=== PATIENT | male | born 1965 | race Caucasian/White ===

== ENCOUNTER 2019-02-14 11:02 | Emergency (ER) | payer MEDICARE, MEDICAID ==
--- NOTE | 2019-02-14 11:21 | ED ---
GI/ HPI - HPI Summary HPI Summary: Patient is a 53-year-old male who presents emergency department for painless hematuria times one day. Past medical history of bipolar disorder. Patient is not anticoagulated. Patient denies associated chest pain, shortness of breath, flank pain, fever, abdominal pain or dysuria. Patient states he is not passing any clots. Patient is a daily smoker. Patient denies similar symptoms in the past. Symptoms are moderate in severity. No current modifying factors. - History of Current Complaint Chief Complaint: EDUrogenitalProblems Time Seen by Provider: 02/14/19 11:19 Stated Complaint: BLOOD IN URINE Hx Obtained From: Patient Pain Intensity: 0 - Allergy/Home Medications Allergies/Adverse Reactions: Allergies Allergy/AdvReac Type Severity Reaction Status Date / Time No Known Allergies Allergy Verified 02/14/19 11:08 Home Medications: Home Medications Atorvastatin* [Lipitor*] 20 mg PO DAILY 02/14/19 [History Confirmed 02/14/19] Divalproex ER TAB(*) [Depakote ER TAB(*)] 1,000 mg PO QAM 02/14/19 [History Confirmed 02/14/19] Divalproex ER TAB(*) [Depakote ER TAB(*)] 1,500 mg PO QPM 02/14/19 [History Confirmed 02/14/19] Escitalopram * [Lexapro 10 mg (NF)] 10 mg PO DAILY 02/14/19 [History Confirmed 02/14/19] Icosapent Ethyl [Vascepa] 1 gm PO BID 02/14/19 [History Confirmed 02/14/19] OLANzapine TAB* [Zyprexa 10 MG TAB*] 10 mg PO DAILY MDD 2 tabs 02/14/19 [ History Confirmed 02/14/19] PMH/Surg Hx/FS Hx/Imm Hx Previously Healthy: Yes Infectious Disease History: No Infectious Disease History: Denies: Traveled Outside the [place] in Last 30 Days - Family History Known Family History: Positive: Non-Contributory - Social History Occupation: Unemployed Lives: With Family Review of Systems Constitutional: Negative Negative: Fever Cardiovascular: Negative Respiratory: Negative Gastrointestinal: Negative Negative: Abdominal Pain, Vomiting, Nausea Positive: hematuria. Negative: dysuria, flank pain Skin: Negative Negative: Rash Neurological: Negative All Other Systems Reviewed And Are Negative: Yes Physical Exam Triage Information Reviewed: Yes Vital Signs On Initial Exam: Initial Vitals Temp Pulse Resp BP Pulse Ox 98.3 F 106 16 171/92 96 02/14/19 11:04 02/14/19 11:04 02/14/19 11:04 02/14/19 11:04 02/14/19 11:04 Completion Of Physical Exam Limited Due To: Dementia Appearance: Positive: Well-Appearing - Patient sitting up in bed in no acute distress. Unkept and malodorous. Skin: Positive: Warm, Dry Head/Face: Positive: Normal Head/Face Inspection Eyes: Positive: Normal, EOMI Neck: Positive: Supple Respiratory/Lung Sounds: Positive: Clear to Auscultation, Breath Sounds Present Cardiovascular: Positive: Normal, RRR Abdomen Description: Positive: Nontender, Soft. Negative: CVA Tenderness (R), CVA Tenderness (L) Neurological: Positive: Normal, CN Intact II-III Psychiatric: Positive: Affect/Mood Appropriate Procedures - Sedation Patient Received Moderate/Deep Sedation with Procedure: No Diagnostics - Vital Signs Vital Signs Temp Pulse Resp BP Pulse Ox 02/14/19 11:04 98.3 F 106 16 171/92 96 - Laboratory Result Diagrams: 02/14/19 11:50 02/14/19 11:55 Lab Statement: Any lab studies that have been ordered have been reviewed, and results considered in the medical decision making process. GIGU Course/Dx - Course Course Of Treatment: Patient with painless hematuria. No flank pain. Is afebrile with stable vital signs. Patient provided urine specimen in ER and looks of zane blood without clots. Urinalysis shows large RBCs without signs of infection. Blood work is unremarkable. CT scan ordered to rule out obstructive obstructive uropathy, evaluate for mass. 1300: Patient notes that he just urinated in the ER again and his urine was clear without blood. Patient states he would prefer to get the CAT scan as an outpatient basis. Advised patient the importance of close follow-up with PCP and neurology for further evaluation such as CT scan and cystoscopy for further evaluation of hematuria. Patient understands and agrees with plan. He will return to the ER symptoms change or worsen. - Diagnoses Differential Diagnoses - Male: Cancer, Neoplasm, Ureteral Calculi, Urinary Tract Infection Provider Diagnoses: Painless hematuria Discharge ED - Sign-Out/Discharge Documenting (check all that apply): Patient Departure - Discharge Plan Condition: Improved Disposition: HOME Patient Education Materials: Hematuria (ED) Referrals: Melissa Rose MD [Primary Care Provider] - Bernard Justin MD [Medical Doctor] - Additional Instructions: Please schedule a follow up appointment with your PCP as soon as possible You will need a referral to urology for CT scan and likely cystoscopy for further evaluation of blood in urine Return to ER if symptoms change or worsen - Billing Disposition and Condition Condition: IMPROVED Disposition: Home - Attestation Statements Provider Attestation: I have seen the patient with the [facility] and agree with the plan and documentation below except as noted: 53-year-old male with a history smoking presents with painless hematuria. Recommended CT scan of the abdomen, patient does not want to , will follow up outpatient. Sheeba Mohan MD
[2019-02-14 12:11] LABS: ABS Basophils 0.1 10^3/ul (0-0.2); ABS Eosinophils 0.1 10^3/ul (0-0.6); ABS Lymphocytes 2.7 10^3/ul (1.0-4.8); ABS Monocytes 0.7 10^3/ul (0-0.8); ABS Neutrophils 5.1 10^3/ul (1.5-7.7); Hematocrit 46 % (42-52); Hemoglobin 15.3 g/dL (14.0-18.0); Lymphocyte % 31.1 %; Mean Corpuscular HGB Conc 34 g/dL (31-36); Mean Corpuscular Hemoglobin 30 pg (27-31); Mean Corpuscular Volume 91 fL (80-94); Mean Platelet Volume 7.8 fL (7.4-10.4); Nucleated Red Blood Cells % 0.2; Platelet Count 279 10^3/uL (150-450); Red Blood Count 5.04 10^6 /uL (4.18-5.48); Red Cell Distribution Width 15 % (10-15); White Blood Count 8.8 10^3/uL (3.5-10.8)
[2019-02-14 12:19] LABS: Urine Appearance Cloudy; Urine Bacteria Absent (Absent); Urine Bilirubin Negative (Negative); Urine Blood 3+ (Negative); Urine Glucose Negative (Negative); Urine Ketones Trace (Negative); Urine Nitrite Negative (Negative); Urine Protein 2+(100 mg/dL) (Negative); Urine Red Blood Cell 3+(>10/hpf) (Absent); Urine Specific Gravity 1.024 (1.010-1.030); Urine Urobilinogen Negative (Negative); Urine White Blood Cell Absent (Absent)
[2019-02-14 12:20] LABS: Urine Color Red
[2019-02-14 12:31] LABS: Activated Partial Thrombo Time 31.1 seconds (26.0-38.0); INR 0.97 (0.82-1.09)
[2019-02-14 12:37] LABS: Albumin 4.1 g/dL (3.2-5.2); Albumin/Globulin Ratio 1.6 (1-3); BUN/Creatinine Ratio 20.5 (8-20); Calcium 9.4 mg/dL (8.6-10.3); EGFR Non-African American 103.3 (>60); Globulin 2.5 g/dL (2-4); Potassium 3.8 mmol/L (3.5-5.0); Total Bilirubin 0.4 mg/dL (0.2-1.0); Total Protein 6.6 g/dL (6.4-8.9)
[2019-02-14 13:31] VITALS: BP 167/110
== END 2019-02-14 13:32 | disposition home or self-care (01) ==
LOC: ED 11:02
DX: R31.9 Hematuria, unspecified (principal); Z79.899 Other long term (current) drug therapy
CPT/HCPCS: 36415; 80053; 81003; 81015; 85025; 85610; 85730; 87086; 99282

== ENCOUNTER 2023-02-28 07:41 | Inpatient (IN) ==
[2023-02-28 09:21] LABS: Hematocrit 49.5 % (38-53); Hemoglobin 16.5 g/dL (13.2-16.3); Mean Corpuscular Hemoglobin 30.1 pg (27-33); Mean Corpuscular Hgb Conc 33.4 g/dL (31-36); Mean Corpuscular Volume 90.1 fL (80-97); Mean Platelet Volume 8.9 fL (7.5-11.2); Platelet Count 237 10^3/uL (150-450); Red Cell Distribution Width 15.5 % (12-17); White Blood Count 18.3 10^3/uL (3.6-10.2)
[2023-02-28 09:38] LABS: Albumin 3.9 g/dL (3.2-5.2); Albumin/Globulin Ratio 1.3 (1-3); C Reactive Protein 82.1 mg/L (<8.01); Calcium 9.8 mg/dL (8.6-10.3); Creatinine, Serum 1.78 mg/dL (0.67-1.17); Globulin 2.9 g/dL (2-4); Potassium 4.5 mmol/L (3.5-5.0); Total Bilirubin 0.5 mg/dL (0.2-1.0); Total Protein 6.8 g/dL (6.4-8.9); eGFR CKD-EPI 43.4 (>60)
[2023-02-28 09:46] LABS: Urine Appearance Turbid; Urine Bilirubin Negative (Negative); Urine Blood 3+ (Negative); Urine Color Amber; Urine Glucose Negative (Negative); Urine Ketones Negative (Negative); Urine Nitrite Negative (Negative); Urine Protein 2+(100 mg/dL) (Negative); Urine Specific Gravity 1.014 (1.002-1.030); Urine Urobilinogen Negative (Negative)
[2023-02-28] MEDS ORDERED: Lactated Ringers 1000 ml BAG 1,000 ML IV ONE (09:49)
[2023-02-28] MEDS ORDERED: Iodixanol (CONTRAST) 320 MG/ML 100 ML SDV IV ONE (09:58)
[2023-02-28 10:23] LABS: Urine Bacteria Absent (Absent); Urine Red Blood Cell 3+(>10/hpf) (Absent); Urine White Blood Cell 3+(>20/hpf) (Absent)
[2023-02-28 10:39] LABS: ABS Basophils 0.1 10^3/uL (0.0-0.1); ABS Lymphocytes 1.6 10^3/uL (1.0-4.8); ABS Monocytes 2.1 10^3/uL (0.0-1.1); ABS Neutrophils 14.5 10^3/uL (1.5-7.6); Eosinophil % 0.1 %; Lymphocyte % 8.6 %
[2023-02-28] MEDS ORDERED: cefTRIAXone 1 gm/50 mL D5W 1 GM/50 ML BAG IV ONE (11:19)
[2023-02-28 12:43] LABS: Erythrocyte Sed Rate 4 mm/Hr (0-19)
[2023-02-28] MEDS ORDERED: Piperacillin/Tazobac 3.375 BAG 3.375 GM/100 ML BAG IV ONE (13:24)
[2023-02-28 13:58] LABS: PSA Screen Ultra Sensitive 22.645 ng/mL (0-4.000)
[2023-02-28] MEDS ORDERED: Nicotine GUM 4MG FRUIT FLAVOR PO PRN (13:59)
[2023-02-28] MEDS ORDERED: Lactated Ringers 1000 ml BAG 1,000 ML IV SCH (14:00)
[2023-02-28] MEDS ORDERED: Zosyn per Pharmacy NOTE FOLLOW UP SCH (14:00)
[2023-02-28] MEDS: NS 0.9% 1000 ml BAG 1,000 ML IV SCH (15:42)
[2023-02-28] MEDS: Enoxaparin 40 MG/0.4 ML SYR SUBCUT SCH (16:19)
[2023-02-28] MEDS: Nicotine PATCH 21 MG/24 HR PATCH TRANSDERM SCH (16:19)
[2023-02-28] MEDS: ZOSYN 3.375 GM Q8H per EXTENDED INFUSION IV SCH (21:05)
[2023-03-01] MEDS: NS 0.9% 1000 ml BAG 1,000 ML IV SCH (00:39)
[2023-03-01] MEDS: ZOSYN 3.375 GM Q8H per EXTENDED INFUSION IV SCH ×3 (04:45→20:35)
[2023-03-01 09:02] LABS: PCO2 Arterial 46 mmHg (35-45)
[2023-03-01] MEDS: Nicotine PATCH 21 MG/24 HR PATCH TRANSDERM SCH (09:05)
[2023-03-01 09:10] LABS: PO2 Arterial 62 mmHg (80-100)
[2023-03-01] MEDS ORDERED: Lactated Ringers 1000 ml BAG 1,000 ML IV ONE ×2 (09:32→14:45)
[2023-03-01] MEDS ORDERED: Morphine 2 MG/ML SYRINGE IV ONE (09:32)
[2023-03-01 11:28] LABS: Hematocrit 45.4 % (38-53); Hemoglobin 14.9 g/dL (13.2-16.3); Mean Corpuscular Hemoglobin 29.8 pg (27-33); Mean Corpuscular Hgb Conc 32.8 g/dL (31-36); Mean Corpuscular Volume 90.9 fL (80-97); Mean Platelet Volume 9.1 fL (7.5-11.2); Platelet Count 220 10^3/uL (150-450); Red Blood Count 4.99 10^6/uL (4.06-5.63); Red Cell Distribution Width 14.9 % (12-17)
[2023-03-01 11:45] LABS: Calcium 9.2 mg/dL (8.6-10.3); Creatinine, Serum 1.31 mg/dL (0.67-1.17); Potassium 4.4 mmol/L (3.5-5.0); eGFR CKD-EPI 62.7 (>60)
[2023-03-01 11:51] LABS: ABS Basophils 0.1 10^3/uL (0.0-0.1); ABS Eosinophils 0.1 10^3/uL (0.0-0.5); ABS Lymphocytes 1.7 10^3/uL (1.0-4.8); ABS Monocytes 2.1 10^3/uL (0.0-1.1); ABS Nucleated RBC 0.01 10^3/ul; Eosinophil % 0.6 %; Lymphocyte % 10.9 %
[2023-03-01 12:25] LABS: TSH Ultra Thyroid Stim Horm 1.54 mcIU/mL (0.34-5.60)
[2023-03-01] MEDS: Enoxaparin 40 MG/0.4 ML SYR SUBCUT SCH (12:59)
[2023-03-01] MEDS ORDERED: Morphine 2 MG/ML SYRINGE IV PRN (13:00)
[2023-03-02] MEDS: ZOSYN 3.375 GM Q8H per EXTENDED INFUSION IV SCH ×3 (05:39→20:38)
[2023-03-02 07:00] LABS: Hematocrit 43.5 % (38-53); Hemoglobin 14.3 g/dL (13.2-16.3); Mean Corpuscular Hemoglobin 30.1 pg (27-33); Mean Corpuscular Hgb Conc 32.8 g/dL (31-36); Mean Corpuscular Volume 91.8 fL (80-97); Platelet Count 209 10^3/uL (150-450); Red Blood Count 4.74 10^6/uL (4.06-5.63); Red Cell Distribution Width 15.2 % (12-17); White Blood Count 14.9 10^3/uL (3.6-10.2)
[2023-03-02 07:12] LABS: Calcium 9.2 mg/dL (8.6-10.3); Creatinine, Serum 1.07 mg/dL (0.67-1.17); Potassium 4.5 mmol/L (3.5-5.0); eGFR CKD-EPI 79.9 (>60)
[2023-03-02 07:57] LABS: ABS Basophils 0.2 10^3/uL (0.0-0.1); ABS Eosinophils 0.2 10^3/uL (0.0-0.5); ABS Lymphocytes 1.4 10^3/uL (1.0-4.8); ABS Monocytes 1.6 10^3/uL (0.0-1.1); ABS Neutrophils 11.5 10^3/uL (1.5-7.6); Eosinophil % 1.3 %; Lymphocyte % 9.5 %
[2023-03-02] MEDS: Nicotine PATCH 21 MG/24 HR PATCH TRANSDERM SCH (07:57)
[2023-03-02] MEDS: Enoxaparin 40 MG/0.4 ML SYR SUBCUT SCH (13:21)
[2023-03-02] MEDS ORDERED: Sulfur Hexaflouride MICROSPHR 25 MG VIAL ONE (14:51)
[2023-03-03] MEDS: ZOSYN 3.375 GM Q8H per EXTENDED INFUSION IV SCH ×2 (07:53→12:18)
[2023-03-03] MEDS: Nicotine PATCH 21 MG/24 HR PATCH TRANSDERM SCH (07:56)
[2023-03-03 08:16] LABS: ABS Basophils 0.1 10^3/uL (0.0-0.1); ABS Eosinophils 0.2 10^3/uL (0.0-0.5); ABS Lymphocytes 1.8 10^3/uL (1.0-4.8); ABS Monocytes 1.4 10^3/uL (0.0-1.1); ABS Neutrophils 9.3 10^3/uL (1.5-7.6); ABS Nucleated RBC 0.01 10^3/ul; Eosinophil % 1.2 %; Hematocrit 43.8 % (38-53); Hemoglobin 14.3 g/dL (13.2-16.3); Lymphocyte % 14.2 %; Mean Corpuscular Hemoglobin 29.9 pg (27-33); Mean Corpuscular Hgb Conc 32.7 g/dL (31-36); Mean Corpuscular Volume 91.5 fL (80-97); Mean Platelet Volume 8.8 fL (7.5-11.2); Nucleated Red Blood Cells % 0.1 %/100WBC (0.0-0.8); Platelet Count 228 10^3/uL (150-450); Red Blood Count 4.79 10^6/uL (4.06-5.63); Red Cell Distribution Width 14.7 % (12-17); White Blood Count 12.6 10^3/uL (3.6-10.2)
[2023-03-03 08:32] LABS: Calcium 8.7 mg/dL (8.6-10.3); Creatinine, Serum 0.8 mg/dL (0.67-1.17); Potassium 4.3 mmol/L (3.5-5.0); eGFR CKD-EPI 101.9 (>60)
[2023-03-03 13:38] LABS: Chlamydia trachomatis NAA Negative (Negative); Neisseria gonorrhoeae (GC) NAA Negative (Negative)
[2023-03-03] MEDS: Enoxaparin 40 MG/0.4 ML SYR SUBCUT SCH (13:59)
[2023-03-03] MEDS: Sulfamethox/Trimethoprim DS TAB 800/160 mg PO SCH (21:38)
[2023-03-04 07:46] LABS: ABS Basophils 0.1 10^3/uL (0.0-0.1); ABS Eosinophils 0.3 10^3/uL (0.0-0.5); ABS Lymphocytes 2.9 10^3/uL (1.0-4.8); ABS Monocytes 1.2 10^3/uL (0.0-1.1); ABS Neutrophils 5.4 10^3/uL (1.5-7.6); Eosinophil % 3.5 %; Hematocrit 41.7 % (38-53); Hemoglobin 13.9 g/dL (13.2-16.3); Lymphocyte % 29.3 %; Mean Corpuscular Hemoglobin 30.2 pg (27-33); Mean Corpuscular Hgb Conc 33.2 g/dL (31-36); Mean Corpuscular Volume 90.9 fL (80-97); Mean Platelet Volume 8.8 fL (7.5-11.2); Platelet Count 235 10^3/uL (150-450); Red Blood Count 4.59 10^6/uL (4.06-5.63); Red Cell Distribution Width 14.4 % (12-17); White Blood Count 9.9 10^3/uL (3.6-10.2)
[2023-03-04] MEDS: Sulfamethox/Trimethoprim DS TAB 800/160 mg PO SCH (08:48)
[2023-03-04] MEDS: Nicotine PATCH 21 MG/24 HR PATCH TRANSDERM SCH (08:50)
[2023-03-04 14:37] VITALS: BP 119/92
[2023-03-04] MEDS: Enoxaparin 40 MG/0.4 ML SYR SUBCUT SCH (14:38)
== END 2023-03-04 17:17 | disposition home or self-care (01) | DRG 872 ==
LOC: ED 07:41 → EDHOLD 13:07 → SUATTDRO 13:07 → MEDTELE 15:00 → SSU 15:02 → MEDTELE 23:21
PROVIDERS: ADMIT Internal Medicine; ATTEND Internal Medicine